=== PATIENT | female | born 1965 | race Caucasian/White ===

== ENCOUNTER 2022-03-24 09:23 | Outpatient (CLI) | payer OTHER, SELFPAY ==
--- OUTSIDE RECORDS SUMMARY | 2022-03-24 09:26 | XMS_ITS ---
:1965 Author Care Team Providers Name Role Phone Vikki Goins Primary Care Provider Unavailable Allergies Code Code System Name Reaction Severity Status Onset NKDA ? Medications Name Status Start Date Stop Date ? ? benzonatate 200 mg capsule Completed ? 06/29 TAKE 1 CAPSULE BY MOUTH THREE TIMES DAILY NEEDED erythromycin 5 mg/gram (0.5 %) eye ointment Completed ? 06/29/2021 hydrocodone 5 mg-acetaminophen 325 mg tablet Completed ? 06/29/2021 ivermectin 3 mg tablet Active ? Not avail able Take 18 mg every day by oral route for 5 days. Zithromax Z-Tex 250 mg tablet Active ? No t available TAKE 2 TABLETS (500 MG) BY ORAL ROUTE O NCE DAILY FOR 1 DAY THEN 1 TABLET (250 MG) BY ORAL ROUTE ONCE DAILY FOR 4 DAYS Problems No Known Problems Procedures None recorded. Results Lab Results None recorded. Past Encounters Encounter Date Diagnosis Provider 06/29/2021 Covid-19 Vikki Goins MD: [id number] [place] [address], Ph. Social History None recorded. Vaccine List Vaccine Type COVID-19, mRNA, LNP-S, PF, 30 mcg/0.3 mL dose (Ponfac) 11/26/2020 12/17/2020 Hep A, adult 05/01/2003 11/04/2003 Hep B, adult 06/23/2003 Hep B, unspecified formulation 02/18/2003 04/01/2003 influenza, injectable, quadrivalent 02/13/2019 Td (adult), adsorbed 08/22/2006 Tdap 09/12/2011 Plan of Care Reminders Provider Appointments None recorded. ? ? Lab None recorded. ? ? Referral None recorded. ? ? Procedures None recorded. ? ? Surgeries None recorded. ? ? Imaging None recorded. ? ? Vitals Height Weight BMI Blood Pressure 5 ft 6 in 207 lbs 33.4 kg/m2 120/76 mm[Hg]
--- OUTSIDE RECORDS SUMMARY | 2022-03-24 09:26 | XMS_ITS | Clinical Summary ---
:1965 Author Organization [employer] [facility] [place] [address] Care Team Providers Name Role Phone Aracely Varner MD Primary Care Provider [phone] Allergies No known active allergies Medications Medication Sig Dispensed Refills Start Date End Date Status medication order Estriol cream 1 30 mg 6 05/23/2019 Active composerIndications: mg/gram. Insert 1 Vaginal atrophy mg nightly per vagina for 2 weeks, then 3 times weekly thereafter. Active Problems Problem Noted Date Suspected glaucoma of both eyes 11/18/2020 Visual field defect 12/26/2019 Visual disturbance 12/24/2019 Presbyopia 09/26/2018 Regular astigmatism, bilateral 09/26/2018 Myopia, bilateral 09/26/2018 Obesity, Class II, BMI 35-39.9 06/08/2016 NESTOR (obstructive sleep apnea) 06/08/2016 Overview: Noted on sleep study 05/2016. Longest chef under ea was 51 seconds. Lowest desats to 80% nonREM sleep; 87% REM sleep Female stress incontinence 09/12/2011 Hyperlipidemia 06/23/2010 Environmental allergies 06/23/2010 Encounters Date Type Specialty Care Team Description 03/23/2022 Telephone Zeinab Escalona OD [facility] Order Request from Last 3 Months Immunizations Name Administration Dates Next Due Hepatitis A (Adult) 11/04/2003, 05/01/2003 Hepatitis B (Adult) 06/23/2003, 04/01/2003, 02/18/2003 Influenza, IIV4 02/13/2019 Td (Age >=7 Years) 08/22/2006 Tdap 09/12/2011 Family History Medical History Relation Name Comments Good Health Brother Alcohol/Drug Father Heart Disease Father CABG Hypertension Father Stroke Maternal Grandmother Cancer-breast Mother Diabetes Mother Other Mother glaucoma Good Health Sister Other Sister insulin resistan ce Relation Name Status Comments Brother Alive Daughter Mariah Alive Father Maternal Grandfather Maternal Grandmother Mother Alive Paternal Grandfather Paternal Grandmother Sister Alive Son Jacky Alive Social History Tobacco Use Types Packs/Day Years Used Date Never Smoker Smokeless Tobacco: Never Used Alcohol Use Standard Drinks/Week Comments Yes 0 (1 standard drink = 0.6 oz pure alcoho l) Alcohol Habits Answer Date Recorded How often do you have a drink containing alcohol? 2-3 times a week 05/23/2019 How many drinks containing alcohol do you have on a 1 or 2 05/23/2019 typical day when you are drinking? How often do you have six or more drinks on one Never 05/23/2019 occasion? 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 Pulse 60 05/23/2019 9:45 AM WOOD FLOORING SPECIALIST Temperature 36.9 ??C (98.4 ??F) 07/30/2012 5:05 PM CDT Respiratory Rate 16 05/11/2016 4:46 PM WOOD FLOORING SPECIALIST Oxygen Saturation - - Inhaled Oxygen Concentration - - Weight 100.2 kg (221 lb) 05/23/2019 9:45 AM WOOD FLOORING SPECIALIST Height 168.9 cm (5' 6.5) 05/23/2019 9:45 AM WOOD FLOORING SPECIALIST Body Mass Index 35.14 05/23/2019 9:45 AM WOOD FLOORING SPECIALIST Plan of Treatment Health Maintenance Due Date Last Done Comments COVID-19 vaccine series (#1) 1965 HIV for age 15-65 1978 Hepatitis C screening for age 0104/30/1981 18-79 Zoster (shingles) series for age 0104/30/2013 50+ (1 of 2) Mammogram for age 45-75 10/22/2018 10/22/2017 (Completed ou [facility]), 11/19/2014, 11/18/2014, Additional history exists Lipids for age 45-75 11/19/2019 11/18/2014, 09/12/2011, 05/15/2006 (Completed outside of [facility]) BMI (ht and wt on same day) for 05/23/2020 05/23/2019, 04/24 age 18+ Depression screening for age 12+ 05/23/2020 05/23/2019, Pap test for age 21-65 09/22/2020 09/22/2017 (Completed out side of [facility]), 11/18/2014, 11/18/2014, Additional history exists Tetanus booster 09/11/2021 09/12/2011, 08/22/2006 (Completed outside of [facility]), 08/22/2006 Influenza for age 50-64 12/23/2021 02/13/2019 Colonoscopy through age 75 03/09/2025 03/09/2015, 5 Tdap Completed 09/12/2011 Results Not on filefrom Last 3 Months Insurance Payer Benefit Plan / Subscriber ID Effective Dates Phone Addre ss Type Group MEDICA MEDICA CHOICE [id number] 2019-[place] [address] [address] [place] [address] Care Teams Nurse Navigator Relationship Specialty Start Date End Date Aracely Varner MD PCP - General Family Practice 06/10/10 [address] [place] [address]
[2022-03-24 15:40] LABS: Albumin* 4.6 g/dL (3.3-5.0)
[2022-03-24 15:41] LABS: Chloride* 105 mmol/L (96-114); Potassium* 4.8 mmol/L (3.6-5.1); Sodium* 141 mmol/L (135-149)
[2022-03-24 15:43] LABS: Aspartate Amino Transferase* 30 U/L (12-35); Bilirubin Total* 0.6 mg/dL (0.1-1.5); Blood Urea Nitrogen* 18 mg/dL (7-30); Carbon Dioxide* 27 mmol/L (20-32); Cholesterol* 249 mg/dL (90-199); Creatinine* 0.7 mg/dL (0.5-1.5); Estimated Glomerular Filt Rate 100 ml/min; Total Protein* 7.2 g/dL (6.0-8.3)
[2022-03-24 15:44] LABS: Alanine Aminotransferase* 32 U/L (4-35); Alkaline Phosphatase* 78 U/L (40-150); Calcium* 9.5 mg/dL (8.4-10.6); HDL Cholesterol* 44 mg/dL (>=50); LDL Cholesterol Calculated 182 mg/dL (<100); Triglycerides* 117 mg/dL (40-149)
[2022-03-24 16:29] LABS: Vitamin B12* 517 pg/mL (243-894)
[2022-03-24 18:26] LABS: Vitamin D 25 Hydroxy* 37 ng/mL (30-80)
[2022-03-24 19:25] LABS: Glucose* 111 mg/dL (60-115)
== END 2022-03-24 09:24 | disposition home or self-care (01) ==
PROVIDERS: PCP Physician Assistant Medical; Visit Provider Physician Assistant Medical
DX: Z01.419 Encounter for gynecological examination (general) (routine) without abnormal findings (principal); R00.2 Palpitations; M54.2 Cervicalgia; Z13.6 Encounter for screening for cardiovascular disorders; Z13.29 Encounter for screening for other suspected endocrine disorder; Z13.21 Encounter for screening for nutritional disorder
CPT/HCPCS: 80053; 80061; 82306; 82607; 82652; 84443

== ENCOUNTER 2022-06-01 09:00 | Outpatient (RCR) | payer OTHER, SELFPAY | END 2022-11-10 23:59 | disposition home or self-care (01) | PROVIDERS: PCP Physician Assistant Medical; Visit Provider Physician Assistant Medical | DX: M54.2 Cervicalgia (principal); M25.511 Pain in right shoulder; Z51.89 Encounter for other specified aftercare | CPT/HCPCS: 97110; 97140; 97161 ==

== ENCOUNTER 2022-08-26 14:21 | Outpatient (CLI) | payer OTHER, SELFPAY ==
--- NOTE | 2022-08-26 14:40 | CRLHL7_ITS ---
For Patients: As a result of the Century Cures Act, medical imaging exams and procedure reports are released immediately into your electronic medical record. You may view this report before your referring provider. If you have questions, please contact your health care provider. BILATERAL SCREENING MAMMOGRAM WITH COMPUTER-AIDED DETECTION AND TOMOSYNTHESIS TECHNIQUE: CC and MLO views were obtained. These mammographic images have been obtained using full-field digital technique. These mammographic images were interpreted with the benefit of computer-aided detection. Breast Tomosynthesis was used in this interpretation. COMPARISON FILM: 11/19/14. FINDINGS: The breasts are heterogeneously dense, which may obscure small masses IMPRESSION: There is no radiographic evidence for malignancy. ASSESSMENT: BI-RADS Category 1: Negative RECOMMENDATION: Routine screening mammogram in 1 year. A lay language report of this examination will be provided to the patient. Boris Rosas M.D. Diagnostic Radiologist [email or web address] LUANA/Dictated by: Boris Rosas MD @ 08/30/2022 11:38:00 AM (Electronically Signed)
== END 2022-08-26 14:22 | disposition home or self-care (01) ==
LOC: MAMMO 14:23
PROVIDERS: PCP Physician Assistant Medical; Visit Provider Physician Assistant Medical
DX: Z12.31 Encounter for screening mammogram for malignant neoplasm of breast (principal); R92.2 Inconclusive mammogram
CPT/HCPCS: 77063; 77067

== ENCOUNTER 2023-11-03 11:29 | Outpatient (CLI) | payer BC, SELFPAY ==
--- OUTSIDE RECORDS SUMMARY | 2023-11-03 11:32 | XMS_ITS | Clinical Summary ---
Author Organization [facility] [facility] Address [place], [place] [address] Care Team Providers Care Driller Hand Name Role Phone Aracely Varner MD Primary Care Provider + Allergies No known active allergies Medications Medication Sig Dispensed Refills Start Date End Date Status medication order composerIndications:Va ginal atrophy Estriol cream 1 mg/gram. Insert 1 mg nightly per vagina for 2 weeks, then 3 times weekly thereafter. 30 mg 6 05/23/2019 Active Active Problems Problem Noted Date Diagnosed Date Suspected glaucoma of both eyes 11/18/2020 Visual field defect 12/26/2019 Visual disturbance 12/24/2019 Presbyopia 09/26/2018 Regular astigmatism, bilateral 09/26/2018 Myopia, bilateral 09/26/2018 Obesity, Class II, BMI 35-39.9 06/08/2016 NESTOR (obstructive sleep apnea) 06/08/2016 Overview: Noted on sleep study 05/2016. Longest apnea was 51 seconds. Lowest desats to 80% nonREM sleep; 87% REM sleep Female stress incontinence 09/12/2011 Hyperlipidemia 06/23/2010 Environmental allergies 06/23/2010 Immunizations Name Administration Dates Next Due Hepatitis A (Adult) 11/04/2003,05/01/2003 Hepatitis B (Adult) 06/23/2003,04/01/2003,2002 Influenza, IIV4 02/13/2019 Td (Age >=7 Years) 08/22/2006 Tdap 09/12/2011 Family History Medical History Relation Name Comments Good Health Brother Alcohol/Drug Father Heart Disease Father CABG Hypertension Father Stroke Maternal Grandmother Cancer-breast Mother Diabetes Mother Other Mother glaucoma Good Health Sister Other Sister insulin resista nce Relation Name Status Comments Brother Alive Daughter Mariah Alive Father Maternal Grandfather Maternal Grandmother Mother Alive Paternal Grandfather Paternal Grandmother Sister Alive Son Jacky Alive Social History Tobacco Use Types Packs/Day Years Used Date Smoking Tobacco: Never Smokeless Tobacco: Never Alcohol Use Standard Drinks/Week Comments Yes 0 (1 standard drink = 0.6 oz pur e alcohol) PHQ-2 Answer Date Recorded PHQ-2 Score 1 05/23/2019 Social Connections Answer Date Recorded Frequency of Communication with Friends and Fami ly Not on file 04/24/2021 Financial Resource Strain Answer Date R ecorded Difficulty of Paying Living Expenses Not on file 04/24/2021 Difficulty of Paying Living Expenses Not on file 04/24/2021 Sex and Gender Information Value Date Recorded Sex Assigned at Not on file Gender Identity Not on file Sexual Orientation Not on file Obstetrics History Para Term AB IAB SAB Ectopic Multiple Livin g Live Births 2 2 2 0 0 0 0 0 0 2 Date Outcome GA Total Labor Labor/2nd/3rd Weight Sex Type Anes PTL Megan A1 A5 Name Clin Term Term Last Filed Vital Signs Vital Sign Reading Time Taken Comments Blood Pressure 120/80 05/23/2019 9:45 AM 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 Pulse 60 05/23/2019 9:45 AM 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 Temperature 36.9 ??C (98.4 ??F) 07/30/2012 5:05 PM CD T Respiratory Rate 16 05/11/2016 4:46 PM 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 Oxygen Saturation - - Inhaled Oxygen Concentration - - Weight 100.2 kg (221 lb) 05/23/2019 9:45 AM 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 Height 168.9 cm (5' 6.5) 05/23/2019 9:45 AM 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 Body Mass Index 35.14 05/23/2019 9:45 AM 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 Plan of Treatment Health Maintenance Due Date Last Done Comments HIV for age 15-65 1978 Hepatitis C screening for age 18-79 1981 Zoster (shingles) series for age 50+ (1 of 2) 2013 Mammogram for age 45-75 10/22/2018 10/23/19 18 (Completed outside of [facility]), 11/19/2014, 11/18/2014, Additional history exists Lipids for age 45-75 11/19/2019 11/18/2014, 09/12/2011, 05/15/2006 (Completed outside of [facility]) BMI (ht and wt on same day) for age 18+ 05/23/2020 05/23/2019, 05/11/2016 Depression screening for age 12+ 05/23/2020 05/23/2019, 05/11/2016 Tetanus booster 09/11/2021 09/12/2011, 04/2006 (Completed outside of [facility]), 08/22/2006 COVID-19 vaccine series ( season) 2022 12/17/2020, 11/26/2020 Influenza for age 50-64 12/24/2023 02/13/2019 Colonoscopy through age 75 03/09/2025 03/09/2015, Pap test for age 21-65 03/24/2025 2, 03/24/2022, 09/22/2017 (Completed outside of [facility]), Additional history exists Tdap Completed 09/12/2011 Pneumococcal series for age 6-64 Aged Out No longer eligible based on patient's age to complete this topic Procedures Procedure Name Priority Date/Time Associated Diagnosis Comments HPV THIN PREP Routine 03/24/2022 9:45 AM 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 SCAN-COLONOSCOPY 03/09/2015 7:30 AM 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 XR MAMMO BILAT SCREEN FFDM (IA) Routine 11/19/2014 12:18 PM CDT Other screening mammogram LIPID PANEL W REFLEX MEASURED LDL Routine 11/18/2014 9:25 AM CDT Screening for lipoid disorders from Last 3 Months or Most Recently Relevant to Health Maintenance Results * HPV HIGH RISK (03/24/2022 9:45 AM 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) TYPE 16 Negative Negative 03/28/2022 1:53 PM 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 [facility] TYPE 18 Negative Negative 03/28/2022 1:53 PM 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 [facility] OTHER HIGH RISK TYPES Negative Negative 03/28/2022 1:53 PM 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 [facility] Other (Cervical/Vagina l) 03/24/2022 9:45 AM 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 03/25/2022 10:12 AM 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 Narrative [facility] - 03/28/2022 1:53 PM 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 HPV types 16, 18, 31, 33, 35, 39, 45, 51, 52, 56, 58, 59, 66 and 68 DNA were undetectable or below the pre-set threshold. Methodology: [facility] 4800 HPV Test Venus Arriaga PA-C MICROBIOLOGY [facility] [address] [place] [id number], [place] * SCAN-COLONOSCOPY (03/09/2015 7:30 AM 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) Narrative Transcriptions Jodi Aguilar MD - 03/09/2015 6:50 AM CST [facility] [address], [address], [place] [address] Patient Name: Araseli Vera Gender: Female Exam Date: 03/09/2015 Visit Number: [id number] Age: 49 Years 10 Months Date of : 1965 Attending MD: Jodi Aguilar MD Medical Record#: [id number] ----- Procedure: Colonoscopy Indications: Colorectal cancer screening Referring MD: Suzy Ramírez MD Primary MD: Suzy Ramírez MD Medications: Intra Procedure Medications: Received MAC sedation per anesthesia provider Complications: No immediate complications Procedure: An examination of the heart and lungs was performed and found to be withinacceptable limits. The patient was therefore deemed a reasonablecandidate for endoscopy and MAC sedation. The risks and benefits of the procedure were explained to the patient.After obtaining informed consent, MAC sedation was administered peranesthesia provider and I passed the scope without difficulty via the rectum to the cecum. The appendiceal orificeand ic valve were identified. The scope was retroflexed during theexamination The quality of the prep was good (Miralax/Gatorade/2 tabletsBisacodyl/Magnesium Citrate). This was a complete examination throughout the entire colon. Findings: The entire colon was normal. Impression: Screening Colonoscopy Plan Repeat colonoscopy in 10 years. If you have signs or symptoms of lower GI illness or a new diagnosis ofcolon cancer in an immediate family member, you should contact [facility] primary provider to discuss whether your next exam should berepeated sooner. We will attempt to contact you at appropriate intervals via U.S. mail. Wemay not be able to find you or contact you at that time, therefore youshould know that the responsibility for following our recommendation restswith you. If you don't hear from us at the time your procedure is due,please contact our office to schedule an appointment. If your contactinformation should change, please contact our office so that we can [facility]. Electronically signed by: Jodi Aguilar MD 03/09/2015 Vital Signs: Date Time Systolic Diastolic Height Weight BMI 03/09/2015 700 AM 114 77 66 in 215.01 34.70 03/09/2015 7:29 AM 146 105 Race: Ethnicity: Not or Preferred Language: Comoran cc: Suzy Ramírez MD cc: Telly BANKS, Aracely Caldwell [facility] [phone] Jodi Aguilar MD OTHER * XR MAMMO BILAT SCREEN FFDM (11/19/2014 12:18 PM CDT) Anatomical Region Laterality Modality BREASTS, Breast Left, Breast Right Bilateral Mammography Impressions 11/19/2014 3:59 PM CDT ??There is no radiographic evidence for malignancy. ??Recommend annual mammograms. A lay language report of this examination will be provided to the patient. MAMMOGRAM ASSESSMENT: ??ACR 1 Negative Narrative 11/19/2014 3:59 PM CDT XR MAMMO BILAT SCREEN FFDM [G0202.0] CLINICAL HISTORY: ??This is an asymptomatic 49 y.o. patient. INDICATION FOR EXAM: Mammogram Screening. TECHNIQUE: CC & MLO views were obtained. ??This digital study was evaluated with the assistance of Computer-Aided Detection. COMPARISON FILM: Yes 03/09/12 [facility] FINDINGS: ??Mammographically, the breast tissue is heterogeneously dense, which could obscure detection of small masses. There are no dominant masses, suspicious micro calcifications or areas of architectural distortion. Suzy Ramírez MD MAMMO * (ABNORMAL) LIPID PANEL W REFLEX MEASURED LDL (11/18/2014 9:25 AM CDT) CHOLESTEROL,TOTAL 242(H) 100 - 199 mg/dL 11/18/2014 4:13 PM CDT [facility] TRIGLYCERIDES 180(H) <150 mg/dL 11/18/2014 4:13 PM T [facility] HDL CHOLESTEROL 42 >40 mg/dL 11/18/2014 4:13 PM T [facility] NON-HDL CHOLESTEROL 200(H) <145 mg/dl 11/18/2014 4:13 PM T [facility] CHOL/HDL RATIO 5.76(H) <4.50 11/18/2014 4:13 PM T [facility] LDL CHOLESTEROL 164(H) <=130 mg/dL 11/18/2014 4:13 PM T [facility] PATIENT STATUS FASTING 11/18/2014 4:13 PM T [facility] Blood specimen (specimen) BLOOD SPECIMEN / Unknown Venipuncture / Unknown 11/18/2014 9:25 AM CDT 11/18/2014 9:25 AM CDT Suzy Ramírez MD CHEMISTRY [facility] [address] [place] [address], [facility] [address] [place] [address], from Last 3 Months or Most Recently Relevant to Health Maintenance Care Teams Driller Hand Relationship Specialty Start [place] [address] [place] [address] PCP - General Family Practice 06/10/10
--- NOTE | 2023-11-03 11:45 | CRLHL7_ITS ---
For Patients: As a result of the Century Cures Act, medical imaging exams and procedure reports are released immediately into your electronic medical record. You may view this report before your referring provider. If you have questions, please contact your health care provider. INDICATION: Leg pain and swelling. TECHNIQUE: Ultrasound venous duplex lower left extremity. Compression venous exam was performed using morrison-scale, color Doppler, and spectral Doppler analysis. COMPARISON: None. FINDINGS: Deep veins: Sonographic imaging demonstrates the left common femoral, deep femoral, superficial femoral, popliteal, posterior tibial and the contralateral right common femoral veins to be fully compressible with normal color Doppler blood flow. Superficial veins: Greater saphenous vein is fully compressible. No popliteal cyst. IMPRESSION: No DVT in the left lower extremity. Dictated by Hilda Waterman MD @ 11/03/2023 12:33:33 PM (Electronically Signed)
== END 2023-11-03 11:30 | disposition home or self-care (01) ==
PROVIDERS: PCP Physician Assistant Medical; Visit Provider Family Medicine
DX: M79.605 Pain in left leg (principal); M79.89 Other specified soft tissue disorders
CPT/HCPCS: 93971

== ENCOUNTER 2024-07-05 08:01 | Outpatient (CLI) | payer BC, SELFPAY | END 2024-07-05 08:02 | disposition home or self-care (01) | LOC: NFLDREF 07-08 03:41 | PROVIDERS: PCP Physician Assistant Medical; Referring Provider Physician Assistant Medical; Visit Provider Physician Assistant Medical | DX: E78.5 Hyperlipidemia, unspecified (principal); R73.03 Prediabetes; E66.9 Obesity, unspecified; Z11.59 Encounter for screening for other viral diseases; Z11.3 Encounter for screening for infections with a predominantly sexual mode of transmission; R73.09 Other abnormal glucose | CPT/HCPCS: 80053; 80061; 84443; 86703; 86803 ==

== ENCOUNTER 2024-08-08 08:32 | Outpatient (CLI) | payer BC, SELFPAY ==
--- NOTE | 2024-08-08 08:45 | CRLHL7_ITS ---
For Patients: As a result of the Century Cures Act, medical imaging exams and procedure reports are released immediately into your electronic medical record. You may view this report before your referring provider. If you have questions, please contact your health care provider. INDICATION: BILATERAL SCREENING MAMMOGRAM, ASYMPTOMATIC 59 Y/O FEMALE COMPARISON: 08/26/22, 11/19/14 TECHNIQUE: CC and MLO views were obtained. These mammographic images have been obtained using full-field digital technique. These mammographic images were interpreted with the benefit of computer aided detection and tomosynthesis. BREAST COMPOSITION: The breasts are heterogeneously dense, which may obscure small masses. FINDINGS: No suspicious findings. ASSESSMENT: BI-RADS 1 Negative RECOMMENDATION: Annual screening mammogram. A lay language report of this examination will be provided to the patient. Dictated by: Boris Rosas MD @ 08/16/2024 12:55:15 (Electronically Signed)
== END 2024-08-08 08:33 | disposition home or self-care (01) ==
LOC: MAMMO 08:33
PROVIDERS: PCP Physician Assistant Medical; Visit Provider Physician Assistant Medical
DX: Z12.31 Encounter for screening mammogram for malignant neoplasm of breast (principal); R92.333 Mammographic heterogeneous density, bilateral breasts
CPT/HCPCS: 77063; 77067